=== PATIENT | male | born 1970 | race Caucasian/White ===

== ENCOUNTER 2024-06-05 07:36 | Day surgery (SDC) | payer BC, SELFPAY ==
[2024-06-05 07:40] VITALS: BP 135/82; PULSE 60; TEMP 36.3; O2SAT 97
[2024-06-05] MEDS: GENTAMICIN SULFATE 80 MG/2 ML VIAL 120 MG IM (08:02)
[2024-06-05] MEDS: LIDOCAINE 2% JELLY 20 ML UR (08:09)
[2024-06-05] MEDS: LIDOCAINE HCL 1% 100 MG/10 ML MDV INJ (08:14)
[2024-06-05 08:29] VITALS: BP 118/62; BP 131/78; PULSE 66; O2SAT 98
--- NOTE | 2024-06-05 08:29 | P.URON_ITS ---
Urology Surgery Operative Note Operative Note Procedure Date: 06/05/24 Time Out Performed: yes Pre-op Diagnosis: Elevated PSA Post-op Diagnosis: same as pre-op Procedures performed: 1. Transrectal ultrasound of the prostate. 2. Prostate needle biopsies Anesthesia: local and other (Olesya-prostatic block) Primary Surgeon: Armando Paul Complications: None Estimated blood loss (mL): 15 Findings: No hypoechoic areas by ultrasound. Specimens: Prostate needle biopsies Drains: None Indications for Procedures: This gentleman has an elevated PSA of 6.5 and increasing to 12.3 with in 3 months. His REGINE is benign. He now presents for transrectal ultrasound and biopsies. He has signed an informed consent after risks were explained. Some of these risks include bleeding, infection, urosepsis and anesthesia to name a few. Detailed description of Procedure: The patient was kept on the gurney bed and brought into the Endo suite. He was rotated in the left lateral decubitus position. Timeout was done by all parties in the room. We all agreed upon the patient's identification and the planned pr ocedures for this patient. A Betadine swab was then applied to the patient's rectum. We then placed 2% Xylocaine jelly per rectum. The ultrasound probe was passed per rectum. The prostate was scanned in the transverse and sagittal views. The volume was calculated to be 83 g. There were no hypoechoic areas noted. While in the sagittal view we then used 1% plain lidocaine and did a Parker pros tatic block. We then began taking biopsies from the left base going towards the apex. We divided up into 4 levels and from each level took 2 biopsies. A similar maneuver was done on the right side. At the end of the procedure we had 16 satisfactory cores. The probe was removed. He was then discharged to home. He was reminded to complete his oral quinolone antibiotic course. He was also instructed to present to an ER if he gets temp near 101 and or shaking chills that will not stop.
--- NOTE | 2024-06-05 08:30 | US_ITS ---
The [address] [address] Patient Name: FILI BILL MRN: [id number] date: 1970 Sex: M Assigned Patient Location: [facility] Current Patient Location: [facility] Accession/Order Number: [id number] Exam Date: 06/05/2024 08:31 Report Date: 06/05/2024 10:44 At the request of: DONELL MERIDA Procedure: US prostate EXAMINATION: US prostate HISTORY: elevated psa COMPARISON: No relevant comparison available. TECHNIQUE: Ultrasound exam for the prostate with an endorectal transducer was performed utilizing real-time and color duplex Doppler sonography. FINDINGS: The prostate gland is enlarged in size lobular contour and heterogeneous in echotexture. Needle seen traversing multiple portions of the prostate gland. ESTIMATED SIZE: 6.6 x 5.9 x 4.1 cm a volume of 84.27 mL g. PREDICTED PSA: 10.11 US/US prostate IMPRESSION: Images from transrectal prostate biopsy demonstrating and enlarged heterogeneous prostate gland Electronically authenticated by: QI PETERS Date: 06/05/2024 10:44
== END 2024-06-05 08:40 | disposition home or self-care (01) ==
PROVIDERS: Family Provider Family Medicine; PCP Family Medicine; Visit Provider Urology
PROC: (CPT 55700; principal; 2024-06-05 08:00)
DX: R97.20 Elevated prostate specific antigen [PSA] (principal); Z87.891 Personal history of nicotine dependence; R35.1 Nocturia; N40.1 Benign prostatic hyperplasia with lower urinary tract symptoms
CPT/HCPCS: 55700; 76872; 88305; J1580